=== PATIENT | male | born 1990 | race Caucasian/White ===

== ENCOUNTER 2018-03-11 23:25 | Emergency (ER) | payer OTHER ==
[2018-03-12 00:04] VITALS: BP 139/79
[2018-03-12] MEDS ORDERED: OXYCODONE-ACETAMINOPHEN 5-325 MG TABLET PO ONE (00:37)
--- NOTE | 2018-03-12 00:43 | ER Document Report ---
HPI - HPI Patient complains to provider of: right knee pain Time Seen by Provider: 03/12/18 00:25 Onset: This evening Onset/Duration: Sudden, Persistent Severity: Severe Pain Level: 4 Context: Patient presents emergency department with complaints of right knee pain. Patient reports recent meniscus repair 3 weeks ago. He reports tonight he went from a sitting to a standing position edition twisted his right knee and it completely buckled. He complains of posterior knee pain at this time. Patient is visiting the area from [facility]. Patient is also wearing a knee immobilizer Associated Symptoms: None Exacerbated by: Movement, Walking Relieved by: Denies Similar symptoms previously: Yes Recently seen / treated by doctor: Yes Past Medical History - General Information source: Patient - Social History Smoking Status: Unknown if Ever Smoked Cigarette use (# per day): No Frequency of alcohol use: None Drug Abuse: None Lives with: Family Family History: None Patient has suicidal ideation: No Patient has homicidal ideation: No - Past Medical History Cardiac Medical History: Reports: Hx Hypertension Past Surgical History: Reports: Hx Orthopedic Surgery Vertical Provider Document - CONSTITUTIONAL Agree With Documented VS: Yes Exam Limitations: No Limitations General Appearance: WD/WN, Mild Distress - winceswith any type of movement to right leg - INFECTION CONTROL TRAVEL OUTSIDE OF THE [place] IN LAST 30 DAYS: No - HEENT HEENT: Atraumatic, Normocephalic - NECK Neck: Supple - RESPIRATORY Respiratory: No Respiratory Distress - CARDIOVASCULAR Cardiovascular: Regular Rate - MUSCULOSKELETAL/EXTREMETIES Musculoskeletal/Extremeties: Tender - right knee ttp, no obvious deformity, good pedal pulse, flexes/extends foot without problem, no erythema, no swelling , no warmth, neg homans - NEURO Level of Consciousness: Awake, Alert, Appropriate Motor/Sensory: No Motor Deficit - DERM Integumentary: Warm, Dry Course - Re-evaluation Re-evalutation: 03/12/18 01:28 Negative x-ray. Patient instructed on x-ray. Plan of care to include pain medication. He is to follow-up with his orthopedic tomorrow. He was instructed to maintain his brace his crutches no weightbearing. He verbalized understanding to all instructions. Dictation of this chart was performed using voice recognition software; therefore, there may be some unintended grammatical errors. - Vital Signs Vital signs: Temp Pulse Resp BP Pulse Ox 97.5 F 91 16 139/79 H 98 03/12/18 00:02 03/12/18 00:02 03/12/18 00:02 03/12/18 00:02 03/12/18 00:02 - Diagnostic Test Radiology reviewed: Image reviewed, Reports reviewed - EXAM DESCRIPTION: XR KNEE 4 OR MORE VIEWS COMPLETED DATE/TME: 03/12/2018 00:24 CLINICAL HISTORY: 28 years, Male, twisted COMPARISON: None. NUMBER OF VIEWS: Four TECHNIQUE: Four views of the right knee LIMITATIONS: None. FINDINGS: There is no acute fracture or dislocation. There is no joint effusion. No significant soft tissue swelling. IMPRESSION: No acute fracture or dislocation Discharge - Discharge Clinical Impression: Right knee pain Qualifiers: Chronicity: acute Qualified Code(s): M25.561 - Pain in right knee Condition: Stable Disposition: HOME, SELF-CARE Instructions: Use of Crutches ([facility]), Suspected Internal Knee Injury ([facility]), Ice & Elevation ([facility]), Oral Narcotic Medication ([facility]), Knee Immobilizing Splint ([facility] ) Additional Instructions: *You have been evaluated for right knee pain, recent surgery *The xray did not show a fracture or effusion. *Maintain your splint, continue using your crutches, non weight bearing *Rest/Ice/Elevate the knee *Follow up with your orthopedics tomorrow. *Take medication as prescribed for pain *Return to ED for worsening condition, changes, needs Prescriptions: Oxycodone HCl/Acetaminophen [Percocet 5-325 mg Tablet] 1 tab PO ASDIR PRN #15 tablet PRN Reason: Forms: Elevated Blood Pressure
--- NOTE | 2018-03-12 01:13 | RADIOLOGY REPORT (SQ) ---
EXAM DESCRIPTION: XR KNEE 4 OR MORE VIEWS COMPLETED DATE/TME: 03/12/2018 00:24 CLINICAL HISTORY: 28 years, Male, twisted COMPARISON: None. NUMBER OF VIEWS: Four TECHNIQUE: Four views of the right knee LIMITATIONS: None. FINDINGS: There is no acute fracture or dislocation. There is no joint effusion. No significant soft tissue swelling. IMPRESSION: No acute fracture or dislocation 2010 [employer]- All Rights Reserved
[2018-03-12] MEDS ORDERED: HYDROCODONE/ACETAMINOPHEN 5-325 MG (6 TAB/ER DISP) PO PRN (01:19)
== END 2018-03-12 01:35 | disposition home or self-care (01) ==
LOC: ER 23:25
DX: M25.561 Pain in right knee (principal); X50.1XXA Overexertion from prolonged static or awkward postures, initial encounter; I10 Essential (primary) hypertension
CPT/HCPCS: 99283